=== PATIENT | female | born 1960 | race Caucasian/White ===

== ENCOUNTER → 2016-11-20 | Outpatient (REF) | LOC: ZLAB.WCH 13:35 | DX: Z01.89 Encounter for other specified special examinations (principal) ==

== ENCOUNTER → 2017-02-03 | Outpatient (CLI) | payer OTHER | LOC: SUN.DIA 09:26 | DX: E11.40 Type 2 diabetes mellitus with diabetic neuropathy, unspecified (principal); Z68.28 Body mass index [BMI] 28.0-28.9, adult; Z71.3 Dietary counseling and surveillance | CPT/HCPCS: G0109 ==

== ENCOUNTER → 2017-02-10 | Outpatient (CLI) | payer OTHER | LOC: SUN.DIA 11:20 | DX: E11.40 Type 2 diabetes mellitus with diabetic neuropathy, unspecified (principal); Z68.28 Body mass index [BMI] 28.0-28.9, adult; Z71.3 Dietary counseling and surveillance | CPT/HCPCS: G0108; G0109 ==

== ENCOUNTER → 2017-02-17 | Outpatient (CLI) | payer OTHER | LOC: SUN.DIA 08:55 | DX: E11.40 Type 2 diabetes mellitus with diabetic neuropathy, unspecified (principal); Z71.3 Dietary counseling and surveillance | CPT/HCPCS: G0109 ==

== ENCOUNTER → 2017-02-24 | Outpatient (CLI) | payer OTHER | LOC: SUN.DIA 14:36 | DX: E11.40 Type 2 diabetes mellitus with diabetic neuropathy, unspecified (principal); Z71.3 Dietary counseling and surveillance | CPT/HCPCS: G0109 ==

== ENCOUNTER → 2017-03-04 | Outpatient (CLI) | payer OTHER | LOC: SUN.DIA 10:35 | DX: E11.40 Type 2 diabetes mellitus with diabetic neuropathy, unspecified (principal); Z68.28 Body mass index [BMI] 28.0-28.9, adult | CPT/HCPCS: G0108 ==

== ENCOUNTER → 2018-06-14 | Outpatient (CLI) | payer OTHER | LOC: COL.RAD 09:04 | DX: R10.11 Right upper quadrant pain (principal) | CPT/HCPCS: A9537 ==

== ENCOUNTER → 2019-01-04 | Outpatient (REF) | LOC: ZLAB.WCH 16:08 | DX: Z01.89 Encounter for other specified special examinations (principal) ==

== ENCOUNTER 2022-07-13 15:30 | Outpatient (RCR) | payer OTHER | END 2022-07-27 | disposition home or self-care (01) | LOC: MKS.ESL.PT | DX: G60.9 Hereditary and idiopathic neuropathy, unspecified (principal) ==

== ENCOUNTER 2022-07-13 15:40 | Outpatient (RCR) | payer SELFPAY | END 2022-07-27 | disposition home or self-care (01) | LOC: MKS.ESL.PT | DX: G60.9 Hereditary and idiopathic neuropathy, unspecified (principal) ==